=== PATIENT | female | born 1940 | race Caucasian/White ===

== ENCOUNTER 2019-06-12 14:50 | Inpatient (IN) ==
[2019-06-12 15:26] LABS: Basophils % 0.4 % (0.0-0.8); Eosinophils % 0.2 % (0.00-10.9); Hematocrit 35.5 VOL% (35.7-47.0); Hemoglobin 11.2 GM/DL (12.0-16.0); Immature Granulocytes % 0.4 %; Immature Granulocytes Absolute 0.02 #; Lymphocytes # 0.9 10*3/uL (1.4-4.0); Lymphocytes % 15.5 % (21.3-54.2); Mean Corpuscular HGB Conc 31.5 GM/DL (32-36); Mean Corpuscular Volume 85.1 FL (87-102); Mean Platelet Volume 8.8 FL (9.6-12.0); Monocytes % 5.6 % (1.7-12.7); Neutrophils % 77.9 % (38.7-73.9); Platelet Count 245 T/CUMM (130-400); Red Blood Count 4.17 MC/CUMM (3.8-5.5); White Blood Count 5.5 T/CUMM (4-12)
[2019-06-12 15:38] LABS: INR 0.9; Partial Thromboplastin Time 26.1 SECS (0-40)
[2019-06-12 15:46] LABS: Apearance,Urine CLEAR (Clear); Bilirubin,Urine Negative (Negative); Blood, Urine Negative (Negative); Glucose,Urine (UA) Negative (Negative); Hyaline Casts,Urine 1 /LPF (0-3); Ketones,Urine 20 mg/dL (Negative); Mucus,Urine Occasional /LPF (Occasional); Nitrite,Urine Negative (Negative); Protein,Urine Negative; RBC,Urine 2 /HPF (0-4); Squamous Epithelial Cell,Urine Occasional /HPF (0-10); Urine Color Yellow (Yellow); Urine Specific Gravity 1.012 (1.001-1.035); Urine Urobilinogen < 2.0 EU/DL (0.2-1.0); WBC,Urine 1 /HPF (0-6)
[2019-06-12 16:32] LABS: Alanine Aminotransferase 13 U/L (13-56); Albumin 3.9 G/DL (3.4-5.0); Alkaline Phosphatase 98 U/L (45-117); Aspartate Amino Transferase 18 U/L (0-37); Bilirubin,Total < 0.39 MG/DL (0.2-1.0); Blood Urea Nitrogen 7 MG/DL (7-18); Glucose 104 MG/DL (74-106); Total Protein 7.4 G/DL (6.4-8.3)
[2019-06-12] MEDS ORDERED: ONDANSETRON 4 MG/2 ML VIAL IV PRN (18:55)
[2019-06-12] MEDS: SIMVASTATIN 20 MG TABLET PO SCH (21:33)
[2019-06-12] MEDS: OLANZapine 5 MG TABLET PO SCH (21:33)
[2019-06-12] MEDS: DONEPEZIL 10 MG TABLET PO SCH (21:33)
[2019-06-13] MEDS ORDERED: MORPHINE 4 MG/1 ML VIAL IV ONE (02:17)
[2019-06-13 04:50] LABS: Basophils % 0.5 % (0.0-0.8); Eosinophils # 0.1 10*3/uL (0.0-0.87); Eosinophils % 1.8 % (0.00-10.9); Hematocrit 31.8 VOL% (35.7-47.0); Hemoglobin 10.1 GM/DL (12.0-16.0); Immature Granulocytes % 0.2 %; Immature Granulocytes Absolute 0.01 #; Lymphocytes # 2.5 10*3/uL (1.4-4.0); Lymphocytes % 38.5 % (21.3-54.2); Mean Corpuscular HGB Conc 31.8 GM/DL (32-36); Mean Corpuscular Volume 84.6 FL (87-102); Monocytes % 6.6 % (1.7-12.7); Neutrophils % 52.4 % (38.7-73.9); Platelet Count 209 T/CUMM (130-400); Red Blood Count 3.76 MC/CUMM (3.8-5.5); Red Cell Distribution Width 16.8 % (9.3-17.3); White Blood Count 6.5 T/CUMM (4-12)
[2019-06-13 05:39] LABS: Calcium 8.3 MG/DL (8.5-10.1); Osmolality,Calculated 263.2 MOS/KG (273-304); Risk Ratio 2.01; Thyroid Stimulating Hormone 4.9 uIU/ml (0.358-3.74); VLDL CHOLESTEROL 17.8 MG/DL
[2019-06-13] MEDS: LEVOTHYROXINE 75 MCG TABLET PO SCH (05:39)
[2019-06-13] MEDS: POTASSIUM CHLORIDE 20 MEQ TABLET PO SCH (08:48)
[2019-06-13] MEDS: PRIMIDONE 50 MG TABLET PO SCH (08:48)
[2019-06-13] MEDS: PANTOPRAZOLE 40 MG TABLET PO SCH (08:48)
[2019-06-13] MEDS: FUROSEMIDE 20 MG TABLET PO SCH (08:49)
[2019-06-13] MEDS: TAMOXIFEN 10 MG TABLET PO SCH (08:49)
[2019-06-13] MEDS: ACETAMINOPHEN 325 MG TABLET PO PRN (08:57)
[2019-06-13] MEDS: IPRATROPIUM 500 MCG/2.5 ML NEB RESP TX SCH ×4 (10:51→19:52)
[2019-06-13] MEDS: CLORAZEPATE 3.75 MG TABLET PO SCH ×3 (12:45→20:42)
[2019-06-13] MEDS ORDERED: cefTRIAXone 1,000 MG in SYRINGE 1 EACH IV SCH (13:00)
[2019-06-13] MEDS: VANCOMYCIN INJ 1,000 MG in SODIUM CHLORIDE 0.9% 250 ML IV SCH (16:56)
[2019-06-13] MEDS: DONEPEZIL 10 MG TABLET PO SCH (20:42)
[2019-06-13] MEDS: OLANZapine 5 MG TABLET PO SCH (20:42)
[2019-06-13] MEDS: SIMVASTATIN 20 MG TABLET PO SCH (20:42)
[2019-06-14] MEDS: ACETAMINOPHEN 325 MG TABLET PO PRN (00:56)
[2019-06-14 06:04] LABS: Basophils % 0.3 % (0.0-0.8); Eosinophils # 0.1 10*3/uL (0.0-0.87); Eosinophils % 2.3 % (0.00-10.9); Hematocrit 27.9 VOL% (35.7-47.0); Hemoglobin 9.1 GM/DL (12.0-16.0); Immature Granulocytes % 0.3 %; Immature Granulocytes Absolute 0.02 #; Lymphocytes # 2.3 10*3/uL (1.4-4.0); Lymphocytes % 37.6 % (21.3-54.2); Mean Corpuscular HGB Conc 32.6 GM/DL (32-36); Mean Corpuscular Volume 83.3 FL (87-102); Mean Platelet Volume 9.2 FL (9.6-12.0); Monocytes % 9.8 % (1.7-12.7); Neutrophils % 49.7 % (38.7-73.9); Platelet Count 197 T/CUMM (130-400); Red Blood Count 3.35 MC/CUMM (3.8-5.5); Red Cell Distribution Width 16.7 % (9.3-17.3)
[2019-06-14] MEDS: LEVOTHYROXINE 75 MCG TABLET PO SCH (06:17)
[2019-06-14 06:31] LABS: Calcium 7.9 MG/DL (8.5-10.1); Osmolality,Calculated 268.8 MOS/KG (273-304)
[2019-06-14] MEDS: IPRATROPIUM 500 MCG/2.5 ML NEB RESP TX SCH ×4 (08:50→19:17)
[2019-06-14] MEDS: POTASSIUM CHLORIDE 20 MEQ TABLET PO SCH (09:40)
[2019-06-14] MEDS: TAMOXIFEN 10 MG TABLET PO SCH (09:40)
[2019-06-14] MEDS: CLORAZEPATE 3.75 MG TABLET PO SCH ×4 (09:40→20:26)
[2019-06-14] MEDS: PRIMIDONE 50 MG TABLET PO SCH (09:40)
[2019-06-14] MEDS: VANCOMYCIN INJ 1,000 MG in SODIUM CHLORIDE 0.9% 250 ML IV SCH (09:40)
[2019-06-14] MEDS: FUROSEMIDE 20 MG TABLET PO SCH (09:40)
[2019-06-14] MEDS: PANTOPRAZOLE 40 MG TABLET PO SCH (09:40)
[2019-06-14] MEDS ORDERED: POTASSIUM CHLORIDE 20 MEQ TABLET PO ONE (11:00)
[2019-06-14] MEDS: DONEPEZIL 10 MG TABLET PO SCH (20:26)
[2019-06-14] MEDS: SIMVASTATIN 20 MG TABLET PO SCH (20:26)
[2019-06-14] MEDS: OLANZapine 5 MG TABLET PO SCH (20:26)
[2019-06-15] MEDS: MIRTAZAPINE 15 MG TABLET PO SCH (01:12)
[2019-06-15 03:45] LABS: Basophils % 0.5 % (0.0-0.8); Eosinophils # 0.2 10*3/uL (0.0-0.87); Eosinophils % 2.8 % (0.00-10.9); Hematocrit 28.8 VOL% (35.7-47.0); Hemoglobin 9.2 GM/DL (12.0-16.0); Immature Granulocytes % 0.3 %; Immature Granulocytes Absolute 0.02 #; Lymphocytes # 2.7 10*3/uL (1.4-4.0); Lymphocytes % 43.4 % (21.3-54.2); Mean Corpuscular HGB Conc 31.9 GM/DL (32-36); Mean Platelet Volume 8.9 FL (9.6-12.0); Monocytes % 9.7 % (1.7-12.7); Neutrophils % 43.3 % (38.7-73.9); Platelet Count 209 T/CUMM (130-400); Red Blood Count 3.43 MC/CUMM (3.8-5.5); Red Cell Distribution Width 17.1 % (9.3-17.3); White Blood Count 6.1 T/CUMM (4-12)
[2019-06-15 04:12] LABS: Calcium 7.8 MG/DL (8.5-10.1); Osmolality,Calculated 268.8 MOS/KG (273-304)
[2019-06-15] MEDS: VANCOMYCIN INJ 1,000 MG in SODIUM CHLORIDE 0.9% 250 ML IV SCH (04:21)
[2019-06-15] MEDS: LEVOTHYROXINE 75 MCG TABLET PO SCH (06:18)
[2019-06-15] MEDS: ACETAMINOPHEN 325 MG TABLET PO PRN (06:18)
[2019-06-15] MEDS: IPRATROPIUM 500 MCG/2.5 ML NEB RESP TX SCH ×4 (07:17→19:33)
[2019-06-15] MEDS: POTASSIUM CHLORIDE 20 MEQ TABLET PO SCH (09:26)
[2019-06-15] MEDS: PRIMIDONE 50 MG TABLET PO SCH (09:26)
[2019-06-15] MEDS: PANTOPRAZOLE 40 MG TABLET PO SCH (09:27)
[2019-06-15] MEDS: FUROSEMIDE 20 MG TABLET PO SCH (09:27)
[2019-06-15] MEDS: CLORAZEPATE 3.75 MG TABLET PO SCH ×4 (09:27→20:56)
[2019-06-15] MEDS: TAMOXIFEN 10 MG TABLET PO SCH (09:27)
[2019-06-15] MEDS: OLANZapine 5 MG TABLET PO SCH (20:56)
[2019-06-15] MEDS: SIMVASTATIN 20 MG TABLET PO SCH (20:56)
[2019-06-15] MEDS: DONEPEZIL 10 MG TABLET PO SCH (20:56)
[2019-06-16] MEDS: MIRTAZAPINE 15 MG TABLET PO SCH ×2 (00:05→20:37)
[2019-06-16 05:29] LABS: Basophils % 0.5 % (0.0-0.8); Eosinophils # 0.2 10*3/uL (0.0-0.87); Eosinophils % 2.8 % (0.00-10.9); Hematocrit 30.2 VOL% (35.7-47.0); Hemoglobin 9.7 GM/DL (12.0-16.0); Immature Granulocytes % 0.4 %; Immature Granulocytes Absolute 0.02 #; Lymphocytes % 35.7 % (21.3-54.2); Mean Corpuscular HGB Conc 32.1 GM/DL (32-36); Mean Corpuscular Volume 84.1 FL (87-102); Mean Platelet Volume 8.7 FL (9.6-12.0); Monocytes % 6.9 % (1.7-12.7); Neutrophils % 53.7 % (38.7-73.9); Platelet Count 202 T/CUMM (130-400); Red Blood Count 3.59 MC/CUMM (3.8-5.5); White Blood Count 5.6 T/CUMM (4-12)
[2019-06-16] MEDS: LEVOTHYROXINE 75 MCG TABLET PO SCH (05:50)
[2019-06-16 06:02] LABS: Calcium 8.4 MG/DL (8.5-10.1); Osmolality,Calculated 269.8 MOS/KG (273-304)
[2019-06-16] MEDS: IPRATROPIUM 500 MCG/2.5 ML NEB RESP TX SCH ×4 (07:06→19:51)
[2019-06-16] MEDS: PANTOPRAZOLE 40 MG TABLET PO SCH (09:09)
[2019-06-16] MEDS: FUROSEMIDE 20 MG TABLET PO SCH (09:09)
[2019-06-16] MEDS: TAMOXIFEN 10 MG TABLET PO SCH (09:09)
[2019-06-16] MEDS: CLORAZEPATE 3.75 MG TABLET PO SCH ×4 (09:09→20:37)
[2019-06-16] MEDS: POTASSIUM CHLORIDE 20 MEQ TABLET PO SCH (09:10)
[2019-06-16] MEDS: PRIMIDONE 50 MG TABLET PO SCH (09:10)
[2019-06-16] MEDS ORDERED: TUBERCULIN SKIN TEST 0.1 ML SYRINGE INTRADERM ONE (16:07)
[2019-06-16] MEDS: OLANZapine 5 MG TABLET PO SCH (20:37)
[2019-06-16] MEDS: DONEPEZIL 10 MG TABLET PO SCH (20:37)
[2019-06-16] MEDS: SIMVASTATIN 20 MG TABLET PO SCH (20:37)
[2019-06-17] MEDS: ACETAMINOPHEN 325 MG TABLET PO PRN ×3 (05:44→20:25)
[2019-06-17] MEDS: LEVOTHYROXINE 75 MCG TABLET PO SCH (05:45)
[2019-06-17] MEDS: IPRATROPIUM 500 MCG/2.5 ML NEB RESP TX SCH ×4 (07:22→19:50)
[2019-06-17] MEDS: PRIMIDONE 50 MG TABLET PO SCH (08:50)
[2019-06-17] MEDS: CLORAZEPATE 3.75 MG TABLET PO SCH ×4 (08:51→20:25)
[2019-06-17] MEDS: PANTOPRAZOLE 40 MG TABLET PO SCH (08:51)
[2019-06-17] MEDS: TAMOXIFEN 10 MG TABLET PO SCH (08:51)
[2019-06-17] MEDS: POTASSIUM CHLORIDE 20 MEQ TABLET PO SCH (08:51)
[2019-06-17] MEDS: FUROSEMIDE 20 MG TABLET PO SCH (08:51)
[2019-06-17] MEDS: DONEPEZIL 10 MG TABLET PO SCH (20:24)
[2019-06-17] MEDS: SIMVASTATIN 20 MG TABLET PO SCH (20:24)
[2019-06-17] MEDS: MIRTAZAPINE 15 MG TABLET PO SCH (20:25)
[2019-06-17] MEDS: OLANZapine 5 MG TABLET PO SCH (20:36)
[2019-06-18] MEDS: ACETAMINOPHEN 325 MG TABLET PO PRN (06:50)
[2019-06-18] MEDS: LEVOTHYROXINE 75 MCG TABLET PO SCH (06:51)
[2019-06-18] MEDS: IPRATROPIUM 500 MCG/2.5 ML NEB RESP TX SCH (07:34)
[2019-06-18 07:39] VITALS: BP 115/56
[2019-06-18] MEDS: FUROSEMIDE 20 MG TABLET PO SCH (08:41)
[2019-06-18] MEDS: PRIMIDONE 50 MG TABLET PO SCH (08:41)
[2019-06-18] MEDS: TAMOXIFEN 10 MG TABLET PO SCH (08:41)
[2019-06-18] MEDS: POTASSIUM CHLORIDE 20 MEQ TABLET PO SCH (08:41)
[2019-06-18] MEDS: PANTOPRAZOLE 40 MG TABLET PO SCH (08:42)
[2019-06-18] MEDS: CLORAZEPATE 3.75 MG TABLET PO SCH (08:42)
== END 2019-06-18 09:54 | disposition swing bed (61) | DRG 72 ==
LOC: EDBD → EDUNIT# → N.ED 14:50 → SUATTDRO 18:55 → N.EDINP 18:55 → N.2E 20:09
PROVIDERS: ADMIT Family Medicine; ATTEND Internal Medicine

== ENCOUNTER 2019-07-08 15:51 | Inpatient (IN) ==
[2019-07-08] MEDS ORDERED: ALBUTEROL/IPRATROPIUM 3 ML NEB RESP TX STA (16:26)
[2019-07-08] MEDS ORDERED: ACETAMINOPHEN 325 MG TABLET PO ONE (16:29)
[2019-07-08 17:57] LABS: Basophils % 0.2 % (0.0-0.8); Eosinophils # 0.1 10*3/uL (0.0-0.87); Eosinophils % 1.6 % (0.00-10.9); Hematocrit 27.5 VOL% (35.7-47.0); Hemoglobin 8.2 GM/DL (12.0-16.0); Immature Granulocytes % 0.5 %; Immature Granulocytes Absolute 0.03 #; Lymphocytes # 2.1 10*3/uL (1.4-4.0); Mean Corpuscular HGB Conc 29.8 GM/DL (32-36); Mean Corpuscular Volume 88.7 FL (87-102); Mean Platelet Volume 8.7 FL (9.6-12.0); Monocytes % 9.8 % (1.7-12.7); Neutrophils % 53.9 % (38.7-73.9); Platelet Count 268 T/CUMM (130-400); Red Cell Distribution Width 16.8 % (9.3-17.3); White Blood Count 6.2 T/CUMM (4-12)
[2019-07-08 18:15] LABS: Alanine Aminotransferase 11 U/L (13-56); Albumin 2.6 G/DL (3.4-5.0); Alkaline Phosphatase 82 U/L (45-117); Aspartate Amino Transferase 11 U/L (0-37); Bilirubin,Total < 0.39 MG/DL (0.2-1.0); Blood Urea Nitrogen 9 MG/DL (7-18); Calcium 8.1 MG/DL (8.5-10.1); Glucose 88 MG/DL (74-106); Osmolality,Calculated 278.3 MOS/KG (273-304); Total Protein 5.9 G/DL (6.4-8.3)
[2019-07-08 18:16] LABS: INR 0.9; PT Patient Result 9.5 SECS; Partial Thromboplastin Time 26.9 SECS (0-40)
[2019-07-08 18:18] LABS: Troponin I < 0.015 NG/ML (0.00-0.045)
[2019-07-08] MEDS ORDERED: methylPREDNISolone SOD SUC 125 MG/2 ML VIAL IV STA (18:50)
[2019-07-08] MEDS ORDERED: diphenhydrAMINE 50 MG/1 ML VIAL IV STA (19:04)
[2019-07-08] MEDS ORDERED: ONDANSETRON 4 MG/2 ML VIAL IV PRN (20:13)
[2019-07-08] MEDS ORDERED: PANTOPRAZOLE 40 MG VIAL IV ONE (20:22)
[2019-07-08] MEDS ORDERED: SODIUM CHLORIDE 0.45% 1,000 ML IV SCH (20:30)
[2019-07-08] MEDS ORDERED: LORazepam 2 MG/1 ML VIAL IV STA (20:37)
[2019-07-08] MEDS ORDERED: LORazepam 2 MG/1 ML VIAL ONE (20:42)
[2019-07-08] MEDS ORDERED: DEXTROSE 5% NACL 0.45% 1,000 ML IV SCH (21:00)
[2019-07-08 22:41] LABS: Hematocrit 29.2 VOL% (35.7-47.0)
[2019-07-08] MEDS ORDERED: PANTOPRAZOLE INJ 200 MG in SODIUM CHLORIDE 0.9% 250 ML IV SCH (23:00)
[2019-07-08] MEDS ORDERED: ZALEPLON 5 MG CAPSULE PO PRN (23:17)
[2019-07-08] MEDS: guaiFENesin/DM ER 600-30 MG TABLET PO SCH (23:42)
[2019-07-08] MEDS: BENZONATATE 100 MG CAPSULE PO SCH (23:42)
[2019-07-08] MEDS: ACETAMINOPHEN 325 MG TABLET PO PRN (23:42)
[2019-07-09] MEDS: ALBUTEROL/IPRATROPIUM 3 ML NEB RESP TX SCH ×4 (00:33→19:35)
[2019-07-09] MEDS: PIPERACILLIN/TAZOBACTAM 3,375 MG in SODIUM CHLORIDE 0.9% 100 ML IV SCH ×3 (00:33→16:58)
[2019-07-09 03:11] LABS: Basophils % 0.3 % (0.0-0.8); Hematocrit 28.1 VOL% (35.7-47.0); Hemoglobin 8.6 GM/DL (12.0-16.0); Immature Granulocytes % 0.5 %; Immature Granulocytes Absolute 0.03 #; Lymphocytes # 1.7 10*3/uL (1.4-4.0); Lymphocytes % 28.3 % (21.3-54.2); Mean Corpuscular HGB Conc 30.6 GM/DL (32-36); Mean Corpuscular Volume 88.1 FL (87-102); Mean Platelet Volume 8.7 FL (9.6-12.0); Monocytes % 6.4 % (1.7-12.7); Neutrophils % 64.5 % (38.7-73.9); Platelet Count 264 T/CUMM (130-400); Red Blood Count 3.19 MC/CUMM (3.8-5.5); Red Cell Distribution Width 16.9 % (9.3-17.3); White Blood Count 6.1 T/CUMM (4-12)
[2019-07-09 03:22] LABS: Calcium 8.4 MG/DL (8.5-10.1); Osmolality,Calculated 279.3 MOS/KG (273-304)
[2019-07-09] MEDS ORDERED: methylPREDNISolone SOD SUC 40 MG/1 ML VIAL IV SCH (09:00)
[2019-07-09 09:08] LABS: Hematocrit 29.2 VOL% (35.7-47.0); Hemoglobin 8.8 GM/DL (12.0-16.0)
[2019-07-09] MEDS: FUROSEMIDE 20 MG/2 ML VIAL IV SCH ×2 (09:41→17:04)
[2019-07-09] MEDS: guaiFENesin/DM ER 600-30 MG TABLET PO SCH ×2 (10:57→21:38)
[2019-07-09] MEDS: BENZONATATE 100 MG CAPSULE PO SCH ×3 (10:58→21:38)
[2019-07-09] MEDS: CLORAZEPATE 3.75 MG TABLET PO SCH ×3 (13:45→21:38)
[2019-07-09] MEDS ORDERED: LEVOFLOXACIN INJ 500 MG in PREMIX 1 EACH IV SCH (15:00)
[2019-07-09 15:10] LABS: Hematocrit 29.1 VOL% (35.7-47.0); Hemoglobin 9.1 GM/DL (12.0-16.0)
[2019-07-09] MEDS: GABAPENTIN 300 MG CAPSULE PO SCH ×2 (15:45→21:38)
[2019-07-09] MEDS: ACETAMINOPHEN 325 MG TABLET PO PRN (16:58)
[2019-07-09] MEDS: ARFORMOTEROL 15 MCG/2 ML NEB RESP TX SCH (19:35)
[2019-07-09] MEDS ORDERED: MIRTAZAPINE 15 MG TABLET PO SCH (21:00)
[2019-07-09] MEDS ORDERED: OLANZapine 5 MG TABLET PO SCH (21:00)
[2019-07-09] MEDS ORDERED: ESCITALOPRAM 10 MG TABLET PO SCH (21:00)
[2019-07-09] MEDS ORDERED: SIMVASTATIN 20 MG TABLET PO SCH (21:00)
[2019-07-09] MEDS ORDERED: DONEPEZIL 10 MG TABLET PO SCH (21:00)
[2019-07-09] MEDS: PHENYTOIN ER 100 MG CAPSULE PO SCH (21:38)
[2019-07-09] MEDS: PANTOPRAZOLE 40 MG TABLET PO SCH (21:38)
[2019-07-09] MEDS: methylPREDNISolone SOD SUC 40 MG/1 ML VIAL IV SCH (21:45)
[2019-07-10] MEDS: ALBUTEROL/IPRATROPIUM 3 ML NEB RESP TX SCH ×2 (01:25→07:36)
[2019-07-10] MEDS: PIPERACILLIN/TAZOBACTAM 3,375 MG in SODIUM CHLORIDE 0.9% 100 ML IV SCH ×2 (01:29→10:07)
[2019-07-10] MEDS ORDERED: LEVOTHYROXINE 75 MCG TABLET PO SCH (06:30)
[2019-07-10 06:33] LABS: % Iron Saturation 6.6 % (18-50); Ferritin 14.2 ng/ml (8-252)
[2019-07-10 06:39] LABS: Alanine Aminotransferase 9 U/L (13-56); Albumin 2.4 G/DL (3.4-5.0); Alkaline Phosphatase 75 U/L (45-117); Aspartate Amino Transferase 16 U/L (0-37); Bilirubin,Total < 0.39 MG/DL (0.2-1.0); Blood Urea Nitrogen 9 MG/DL (7-18); Calcium 8.4 MG/DL (8.5-10.1); Folate 13.2 NG/ML (5.4-24.0); Glucose 90 MG/DL (74-106); Osmolality,Calculated 284.8 MOS/KG (273-304); Total Protein 6.3 G/DL (6.4-8.3)
[2019-07-10 07:17] VITALS: BP 122/52
[2019-07-10] MEDS ORDERED: PHENYLEPHRINE 1 MG/10 ML SYRINGE IV ONE (07:33)
[2019-07-10] MEDS ORDERED: MORPHINE 10 MG/10 ML VIAL ONE (07:33)
[2019-07-10] MEDS ORDERED: BUPIVACAINE SPINAL 0.75% 2 ML AMP SPINAL ONE (07:33)
[2019-07-10] MEDS ORDERED: BUPIVACAINE 0.25% 50 ML VIAL ONE (07:33)
[2019-07-10] MEDS: ARFORMOTEROL 15 MCG/2 ML NEB RESP TX SCH (07:36)
[2019-07-10 07:52] LABS: Basophils % 0.5 % (0.0-0.8); Eosinophils # 0.1 10*3/uL (0.0-0.87); Eosinophils % 1.1 % (0.00-10.9); Hematocrit 27.7 VOL% (35.7-47.0); Hemoglobin 8.4 GM/DL (12.0-16.0); Immature Granulocytes % 0.5 %; Immature Granulocytes Absolute 0.03 #; Lymphocytes # 2.3 10*3/uL (1.4-4.0); Lymphocytes % 42.7 % (21.3-54.2); Mean Corpuscular HGB Conc 30.3 GM/DL (32-36); Mean Corpuscular Volume 88.5 FL (87-102); Mean Platelet Volume 8.8 FL (9.6-12.0); Monocytes % 9.2 % (1.7-12.7); Platelet Count 270 T/CUMM (130-400); Red Blood Count 3.13 MC/CUMM (3.8-5.5); Red Cell Distribution Width 17.4 % (9.3-17.3); White Blood Count 5.5 T/CUMM (4-12)
[2019-07-10] MEDS ORDERED: NON-FORMULARY MEDICATION (Omeprazole 20 MG) PO SCH (09:00)
[2019-07-10] MEDS ORDERED: PRIMIDONE 50 MG TABLET PO SCH (09:00)
[2019-07-10] MEDS ORDERED: NON-FORMULARY MEDICATION (Tiotropium Bromide [Spiriva With Handihaler] 18 MCG) INH SCH (09:00)
[2019-07-10] MEDS ORDERED: MENTHOL ZINC OXIDE TOP SCH (09:00)
[2019-07-10] MEDS ORDERED: TAMOXIFEN 10 MG TABLET PO SCH (09:00)
[2019-07-10] MEDS: PHENYTOIN ER 100 MG CAPSULE PO SCH (09:50)
[2019-07-10] MEDS: BENZONATATE 100 MG CAPSULE PO SCH (09:51)
[2019-07-10] MEDS: PANTOPRAZOLE 40 MG TABLET PO SCH (09:52)
[2019-07-10] MEDS: GABAPENTIN 300 MG CAPSULE PO SCH (09:52)
[2019-07-10] MEDS: guaiFENesin/DM ER 600-30 MG TABLET PO SCH (09:52)
[2019-07-10] MEDS: CLORAZEPATE 3.75 MG TABLET PO SCH (09:54)
[2019-07-10] MEDS: FUROSEMIDE 20 MG/2 ML VIAL IV SCH (10:06)
[2019-07-10] MEDS: methylPREDNISolone SOD SUC 40 MG/1 ML VIAL IV SCH (10:06)
[2019-07-10] MEDS ORDERED: LEVOFLOXACIN 500 MG TABLET PO SCH (10:30)
== END 2019-07-10 10:35 | DRG 190 ==
LOC: EDUNIT# → N.ED 15:51 → N.EDINP 20:13 → N.2E 22:25
PROVIDERS: ADMIT Family Medicine; ATTEND Family Medicine

== ENCOUNTER 2020-07-21 11:08 | Inpatient (IN) ==
[2020-07-21] MEDS ORDERED: ONDANSETRON 4 MG/2 ML VIAL IV STA (11:36)
[2020-07-21] MEDS ORDERED: SODIUM CHLORIDE 0.9% 1,000 ML IV STA (11:36)
[2020-07-21] MEDS ORDERED: DEXAMETHASONE 4 MG/1 ML VIAL IV STA (11:41)
[2020-07-21] MEDS ORDERED: ALBUTEROL 2.5 MG/3 ML NEB RESP TX STA (12:43)
[2020-07-21 13:02] LABS: Eosinophils % 0.2 % (0.00-10.9); Hematocrit 29.6 VOL% (35.7-47.0); Hemoglobin 8.9 GM/DL (12.0-16.0); Immature Granulocytes % 0.7 %; Immature Granulocytes Absolute 0.03 #; Lymphocytes # 1.8 10*3/uL (1.4-4.0); Lymphocytes % 41.7 % (21.3-54.2); Mean Corpuscular HGB Conc 30.1 GM/DL (32-36); Mean Corpuscular Volume 81.5 FL (87-102); Mean Platelet Volume 8.6 FL (9.6-12.0); Monocytes % 8.5 % (1.7-12.7); Neutrophils % 48.9 % (38.7-73.9); Platelet Count 177 T/CUMM (130-400); Red Blood Count 3.63 MC/CUMM (3.8-5.5); Red Cell Distribution Width 18.2 % (9.3-17.3); White Blood Count 4.3 T/CUMM (4-12)
[2020-07-21 13:06] LABS: Alanine Aminotransferase 9 U/L (13-56); Albumin 2.1 G/DL (3.4-5.0); Alkaline Phosphatase 97 U/L (45-117); Aspartate Amino Transferase 30 U/L (0-37); Bilirubin,Total < 0.39 MG/DL (0.2-1.0); Blood Urea Nitrogen 7 MG/DL (7-18); Calcium 7.3 MG/DL (8.5-10.1); Estimated Glom Filtration Rate 84 ML/MIN; Glucose 78 MG/DL (74-106); Osmolality,Calculated 264.2 MOS/KG (273-304); Total Protein 6.1 G/DL (6.4-8.3)
[2020-07-21] MEDS: ALBUTEROL INHALER 18 GM INH SCH ×2 (14:30→19:02)
[2020-07-21] MEDS ORDERED: DEXTROSE 50% 25 GM/50 ML VIAL IV PRN (15:58)
[2020-07-21] MEDS ORDERED: GLUCAGON 1 MG VIAL IM PRN (15:58)
[2020-07-21] MEDS ORDERED: LEVOFLOXACIN INJ 500 MG in PREMIX 1 EACH IV SCH (16:30)
[2020-07-21 17:16] LABS: Band Neutrophils 6 % (0-10); Lymphocytes 33 % (20-55); Segmented Neutrophils 55 % (50-85); Total Cells Counted 100
[2020-07-21 17:17] LABS: Microcytosis Slight; Platelet Estimate Adequate; Polychromasia Slight
[2020-07-21] MEDS ORDERED: ENOXAPARIN 60 MG/0.6 ML SYRINGE SUBCUT SCH (21:00)
[2020-07-21] MEDS ORDERED: PULMICORT FLEXHALER INH SCH (21:00)
[2020-07-21] MEDS: MELATONIN 3 MG TABLET PO SCH (21:36)
[2020-07-21] MEDS: ACETAMINOPHEN 325 MG TABLET PO PRN (21:36)
[2020-07-21] MEDS: DONEPEZIL 10 MG TABLET PO SCH (21:36)
[2020-07-21] MEDS: BENZONATATE 100 MG CAPSULE PO SCH (21:37)
[2020-07-21] MEDS: OLANZapine 5 MG TABLET PO SCH (21:37)
[2020-07-21] MEDS: MIRTAZAPINE 30 MG TABLET PO SCH (21:37)
[2020-07-21] MEDS: ESCITALOPRAM 10 MG TABLET PO SCH (21:37)
[2020-07-21] MEDS: NEOMYCIN/POLYMYXIN/BACITRACIN OINT 0.9 GM PACK TOP SCH (21:38)
[2020-07-21] MEDS: MENTHOL/ZINC OXIDE OINT 71 GM JAR TOP SCH (21:40)
[2020-07-22] MEDS: PHENYTOIN ER 100 MG CAPSULE PO SCH ×3 (00:06→20:51)
[2020-07-22] MEDS: ALBUTEROL INHALER 18 GM INH SCH ×4 (00:17→18:06)
[2020-07-22 05:24] LABS: Eosinophils % 0.9 % (0.00-10.9); Hematocrit 30.6 VOL% (35.7-47.0); Hemoglobin 8.9 GM/DL (12.0-16.0); Immature Granulocytes % 0.6 %; Immature Granulocytes Absolute 0.02 #; Lymphocytes # 1.3 10*3/uL (1.4-4.0); Lymphocytes % 41.2 % (21.3-54.2); Mean Corpuscular HGB Conc 29.1 GM/DL (32-36); Mean Corpuscular Volume 83.8 FL (87-102); Mean Platelet Volume 10.7 FL (9.6-12.0); Monocytes % 9.5 % (1.7-12.7); Neutrophils % 47.8 % (38.7-73.9); Platelet Count 153 T/CUMM (130-400); Red Blood Count 3.65 MC/CUMM (3.8-5.5); Red Cell Distribution Width 18.5 % (9.3-17.3); White Blood Count 3.3 T/CUMM (4-12)
[2020-07-22 06:16] LABS: Eosinophils 2 % (0-10); Hypochromasia 1+; Lymphocytes 32 % (20-55); Microcytosis 1+; Segmented Neutrophils 54 % (50-85); Total Cells Counted 100
[2020-07-22 06:18] LABS: Atypical Lymphocytes Few; Platelet Estimate Adequate
[2020-07-22 06:27] LABS: Calcium 7.7 MG/DL (8.5-10.1); Osmolality,Calculated 269.8 MOS/KG (273-304)
[2020-07-22] MEDS ORDERED: SPIRIVA INH SCH (09:00)
[2020-07-22] MEDS: POTASSIUM CHLORIDE 20 MEQ/15 ML UDCUP PO SCH (09:04)
[2020-07-22] MEDS: ENOXAPARIN 40 MG/0.4 ML SYRINGE SUBCUT SCH ×2 (09:04→20:51)
[2020-07-22] MEDS: PRIMIDONE 50 MG TABLET PO SCH (09:04)
[2020-07-22] MEDS: ASCORBIC ACID 500 MG TABLET PO SCH (09:05)
[2020-07-22] MEDS: CETIRIZINE 10 MG TABLET PO SCH (09:05)
[2020-07-22] MEDS: FERROUS SULFATE 325 MG TABLET PO SCH (09:05)
[2020-07-22] MEDS: BENZONATATE 100 MG CAPSULE PO SCH ×3 (09:05→20:50)
[2020-07-22] MEDS: DEXAMETHASONE 4 MG/1 ML VIAL IV SCH (09:05)
[2020-07-22] MEDS: LACTOBACILLUS ACIDOPHILUS/BULGARICUS CAPLET PO SCH (09:05)
[2020-07-22] MEDS: ZINC SULFATE 220 MG CAPSULE PO SCH (09:06)
[2020-07-22] MEDS: LEVOFLOXACIN 750 MG TABLET PO SCH (09:06)
[2020-07-22] MEDS: MENTHOL/ZINC OXIDE OINT 71 GM JAR TOP SCH ×3 (09:06→21:00)
[2020-07-22] MEDS: FUROSEMIDE 20 MG TABLET PO SCH (09:06)
[2020-07-22] MEDS: DESITIN 4OZ/NYSTATIN 15 GRAM MIXTURE PASTE TOP SCH ×2 (14:56→21:00)
[2020-07-22] MEDS ORDERED: GABAPENTIN 300 MG CAPSULE PO ONE (17:46)
[2020-07-22] MEDS: ACETAMINOPHEN 325 MG TABLET PO PRN (18:06)
[2020-07-22] MEDS: GABAPENTIN 300 MG CAPSULE PO SCH (20:50)
[2020-07-22] MEDS: ESCITALOPRAM 10 MG TABLET PO SCH (20:50)
[2020-07-22] MEDS: DONEPEZIL 10 MG TABLET PO SCH (20:51)
[2020-07-22] MEDS: OLANZapine 5 MG TABLET PO SCH (20:51)
[2020-07-22] MEDS: NEOMYCIN/POLYMYXIN/BACITRACIN OINT 0.9 GM PACK TOP SCH (20:51)
[2020-07-22] MEDS: MIRTAZAPINE 30 MG TABLET PO SCH (20:51)
[2020-07-22] MEDS: MELATONIN 3 MG TABLET PO SCH (20:51)
[2020-07-23] MEDS: ALBUTEROL INHALER 18 GM INH SCH ×4 (00:10→18:21)
[2020-07-23 06:17] LABS: Basophils % 0.3 % (0.0-0.8); Eosinophils % 0.8 % (0.00-10.9); Hematocrit 28.7 VOL% (35.7-47.0); Hemoglobin 8.6 GM/DL (12.0-16.0); Immature Granulocytes % 0.5 %; Immature Granulocytes Absolute 0.02 #; Lymphocytes # 1.7 10*3/uL (1.4-4.0); Lymphocytes % 42.3 % (21.3-54.2); Mean Corpuscular Volume 81.8 FL (87-102); Mean Platelet Volume 8.9 FL (9.6-12.0); Monocytes % 7.7 % (1.7-12.7); Neutrophils % 48.4 % (38.7-73.9); Platelet Count 187 T/CUMM (130-400); Red Blood Count 3.51 MC/CUMM (3.8-5.5); Red Cell Distribution Width 18.8 % (9.3-17.3); White Blood Count 3.9 T/CUMM (4-12)
[2020-07-23] MEDS: LEVOTHYROXINE 75 MCG TABLET PO SCH (06:20)
[2020-07-23 06:43] LABS: Calcium 7.9 MG/DL (8.5-10.1); Osmolality,Calculated 269.8 MOS/KG (273-304)
[2020-07-23 07:10] LABS: Anisocytosis 2+; Band Neutrophils 3 % (0-10); Lymphocytes 41 % (20-55); Macrocytosis 2+; Platelet Estimate Normal; Polychromasia 1+; Segmented Neutrophils 47 % (50-85); Total Cells Counted 100
[2020-07-23] MEDS: MENTHOL/ZINC OXIDE OINT 71 GM JAR TOP SCH ×3 (09:10→20:44)
[2020-07-23] MEDS: hydrOXYzine HCL 25 MG TABLET PO SCH (09:10)
[2020-07-23] MEDS: LACTOBACILLUS ACIDOPHILUS/BULGARICUS CAPLET PO SCH (09:10)
[2020-07-23] MEDS: DEXAMETHASONE 4 MG/1 ML VIAL IV SCH (09:10)
[2020-07-23] MEDS: PHENYTOIN ER 100 MG CAPSULE PO SCH ×2 (09:10→20:43)
[2020-07-23] MEDS: ENOXAPARIN 40 MG/0.4 ML SYRINGE SUBCUT SCH ×2 (09:11→20:44)
[2020-07-23] MEDS: FERROUS SULFATE 325 MG TABLET PO SCH (09:11)
[2020-07-23] MEDS: PRIMIDONE 50 MG TABLET PO SCH (09:11)
[2020-07-23] MEDS: ZINC SULFATE 220 MG CAPSULE PO SCH (09:11)
[2020-07-23] MEDS: LEVOFLOXACIN 750 MG TABLET PO SCH (09:11)
[2020-07-23] MEDS: GABAPENTIN 300 MG CAPSULE PO SCH ×2 (09:11→20:44)
[2020-07-23] MEDS: DESITIN 4OZ/NYSTATIN 15 GRAM MIXTURE PASTE TOP SCH ×2 (09:11→20:56)
[2020-07-23] MEDS: MELOXICAM 7.5 MG TABLET PO SCH (09:11)
[2020-07-23] MEDS: FUROSEMIDE 20 MG TABLET PO SCH (09:11)
[2020-07-23] MEDS: ASCORBIC ACID 500 MG TABLET PO SCH (09:11)
[2020-07-23] MEDS: POTASSIUM CHLORIDE 20 MEQ/15 ML UDCUP PO SCH (09:11)
[2020-07-23] MEDS: TAMOXIFEN 10 MG TABLET PO SCH (09:11)
[2020-07-23] MEDS: CETIRIZINE 10 MG TABLET PO SCH (09:11)
[2020-07-23] MEDS: BENZONATATE 100 MG CAPSULE PO SCH ×3 (09:11→20:43)
[2020-07-23] MEDS ORDERED: REMDESIVIR 200 MG in SODIUM CHLORIDE 0.9% 210 ML IV ONE (17:00)
[2020-07-23] MEDS: ACETAMINOPHEN 325 MG TABLET PO PRN (18:00)
[2020-07-23] MEDS: ONDANSETRON 4 MG/2 ML VIAL IV PRN (19:00)
[2020-07-23] MEDS: MELATONIN 3 MG TABLET PO SCH (20:42)
[2020-07-23] MEDS: OLANZapine 5 MG TABLET PO SCH (20:42)
[2020-07-23] MEDS: DONEPEZIL 10 MG TABLET PO SCH (20:42)
[2020-07-23] MEDS: ESCITALOPRAM 10 MG TABLET PO SCH (20:43)
[2020-07-23] MEDS: MIRTAZAPINE 30 MG TABLET PO SCH (20:43)
[2020-07-23] MEDS: NEOMYCIN/POLYMYXIN/BACITRACIN OINT 0.9 GM PACK TOP SCH (20:44)
[2020-07-24] MEDS: ALBUTEROL INHALER 18 GM INH SCH ×4 (00:36→18:48)
[2020-07-24 06:03] LABS: Eosinophils # 0.1 10*3/uL (0.0-0.87); Eosinophils % 1.5 % (0.00-10.9); Hematocrit 27.6 VOL% (35.7-47.0); Hemoglobin 8.2 GM/DL (12.0-16.0); Immature Granulocytes % 0.6 %; Immature Granulocytes Absolute 0.02 #; Lymphocytes # 1.1 10*3/uL (1.4-4.0); Lymphocytes % 34.7 % (21.3-54.2); Mean Corpuscular HGB Conc 29.7 GM/DL (32-36); Mean Corpuscular Volume 83.1 FL (87-102); Mean Platelet Volume 9.2 FL (9.6-12.0); Monocytes % 8.5 % (1.7-12.7); Neutrophils % 54.7 % (38.7-73.9); Platelet Count 207 T/CUMM (130-400); Red Blood Count 3.32 MC/CUMM (3.8-5.5); Red Cell Distribution Width 18.9 % (9.3-17.3); White Blood Count 3.3 T/CUMM (4-12)
[2020-07-24] MEDS: LEVOTHYROXINE 75 MCG TABLET PO SCH (06:22)
[2020-07-24 06:29] LABS: Calcium 7.9 MG/DL (8.5-10.1); Osmolality,Calculated 271.7 MOS/KG (273-304)
[2020-07-24 06:34] LABS: Anisocytosis 1+; Platelet Estimate Normal; Polychromasia Slight; Spherocytes Slight
[2020-07-24 06:35] LABS: Hypochromasia 1+; Ovalocytes Slight
[2020-07-24] MEDS: LACTOBACILLUS ACIDOPHILUS/BULGARICUS CAPLET PO SCH (09:27)
[2020-07-24] MEDS: MELOXICAM 7.5 MG TABLET PO SCH (09:27)
[2020-07-24] MEDS: DEXAMETHASONE 4 MG/1 ML VIAL IV SCH (09:27)
[2020-07-24] MEDS: POTASSIUM CHLORIDE 20 MEQ/15 ML UDCUP PO SCH (09:27)
[2020-07-24] MEDS: ENOXAPARIN 40 MG/0.4 ML SYRINGE SUBCUT SCH ×2 (09:27→21:41)
[2020-07-24] MEDS: hydrOXYzine HCL 25 MG TABLET PO SCH (09:28)
[2020-07-24] MEDS: CETIRIZINE 10 MG TABLET PO SCH (09:28)
[2020-07-24] MEDS: GABAPENTIN 300 MG CAPSULE PO SCH ×2 (09:28→21:42)
[2020-07-24] MEDS: PHENYTOIN ER 100 MG CAPSULE PO SCH ×2 (09:29→21:42)
[2020-07-24] MEDS: FERROUS SULFATE 325 MG TABLET PO SCH (09:30)
[2020-07-24] MEDS: ASCORBIC ACID 500 MG TABLET PO SCH (09:30)
[2020-07-24] MEDS: TAMOXIFEN 10 MG TABLET PO SCH (09:30)
[2020-07-24] MEDS: BENZONATATE 100 MG CAPSULE PO SCH ×3 (09:31→21:41)
[2020-07-24] MEDS: FUROSEMIDE 20 MG TABLET PO SCH (09:31)
[2020-07-24] MEDS: LEVOFLOXACIN 750 MG TABLET PO SCH (09:31)
[2020-07-24] MEDS: ZINC SULFATE 220 MG CAPSULE PO SCH (09:31)
[2020-07-24] MEDS: MENTHOL/ZINC OXIDE OINT 71 GM JAR TOP SCH ×3 (09:31→21:43)
[2020-07-24] MEDS: PRIMIDONE 50 MG TABLET PO SCH (09:32)
[2020-07-24] MEDS: DESITIN 4OZ/NYSTATIN 15 GRAM MIXTURE PASTE TOP SCH ×2 (09:33→21:44)
[2020-07-24] MEDS: ONDANSETRON 4 MG/2 ML VIAL IV PRN ×3 (10:22→22:35)
[2020-07-24] MEDS: REMDESIVIR 100 MG in SODIUM CHLORIDE 0.9% 230 ML IV SCH (17:18)
[2020-07-24] MEDS: ESCITALOPRAM 10 MG TABLET PO SCH (21:41)
[2020-07-24] MEDS: DONEPEZIL 10 MG TABLET PO SCH (21:42)
[2020-07-24] MEDS: OLANZapine 5 MG TABLET PO SCH (21:42)
[2020-07-24] MEDS: MELATONIN 3 MG TABLET PO SCH (21:42)
[2020-07-24] MEDS: MIRTAZAPINE 30 MG TABLET PO SCH (21:42)
[2020-07-24] MEDS: NEOMYCIN/POLYMYXIN/BACITRACIN OINT 0.9 GM PACK TOP SCH (21:44)
[2020-07-25] MEDS: ALBUTEROL INHALER 18 GM INH SCH ×4 (00:30→18:34)
[2020-07-25] MEDS: LEVOTHYROXINE 75 MCG TABLET PO SCH (06:22)
[2020-07-25] MEDS: FERROUS SULFATE 325 MG TABLET PO SCH (08:03)
[2020-07-25] MEDS: hydrOXYzine HCL 25 MG TABLET PO SCH (08:03)
[2020-07-25] MEDS: MELOXICAM 7.5 MG TABLET PO SCH (08:04)
[2020-07-25] MEDS: CETIRIZINE 10 MG TABLET PO SCH (08:04)
[2020-07-25] MEDS: FUROSEMIDE 20 MG TABLET PO SCH (08:04)
[2020-07-25] MEDS: ZINC SULFATE 220 MG CAPSULE PO SCH (08:04)
[2020-07-25] MEDS: PHENYTOIN ER 100 MG CAPSULE PO SCH ×2 (08:04→20:01)
[2020-07-25] MEDS: ASCORBIC ACID 500 MG TABLET PO SCH (08:05)
[2020-07-25] MEDS: BENZONATATE 100 MG CAPSULE PO SCH ×3 (08:05→20:00)
[2020-07-25] MEDS: LEVOFLOXACIN 750 MG TABLET PO SCH (08:05)
[2020-07-25] MEDS: GABAPENTIN 300 MG CAPSULE PO SCH ×2 (08:05→20:01)
[2020-07-25] MEDS: LACTOBACILLUS ACIDOPHILUS/BULGARICUS CAPLET PO SCH (08:06)
[2020-07-25] MEDS: DEXAMETHASONE 4 MG/1 ML VIAL IV SCH (08:06)
[2020-07-25] MEDS: TAMOXIFEN 10 MG TABLET PO SCH (08:06)
[2020-07-25] MEDS: ENOXAPARIN 40 MG/0.4 ML SYRINGE SUBCUT SCH ×2 (08:07→20:00)
[2020-07-25] MEDS: POTASSIUM CHLORIDE 20 MEQ/15 ML UDCUP PO SCH (08:07)
[2020-07-25] MEDS: MENTHOL/ZINC OXIDE OINT 71 GM JAR TOP SCH ×3 (08:13→20:02)
[2020-07-25] MEDS: DESITIN 4OZ/NYSTATIN 15 GRAM MIXTURE PASTE TOP SCH ×2 (08:14→20:02)
[2020-07-25] MEDS: PRIMIDONE 50 MG TABLET PO SCH (08:19)
[2020-07-25] MEDS: ONDANSETRON 4 MG/2 ML VIAL IV PRN ×2 (08:19→18:56)
[2020-07-25] MEDS: REMDESIVIR 100 MG in SODIUM CHLORIDE 0.9% 230 ML IV SCH (17:47)
[2020-07-25] MEDS: ESCITALOPRAM 10 MG TABLET PO SCH (20:00)
[2020-07-25] MEDS: DONEPEZIL 10 MG TABLET PO SCH (20:01)
[2020-07-25] MEDS: MELATONIN 3 MG TABLET PO SCH (20:01)
[2020-07-25] MEDS: OLANZapine 5 MG TABLET PO SCH (20:01)
[2020-07-25] MEDS: MIRTAZAPINE 30 MG TABLET PO SCH (20:01)
[2020-07-25] MEDS: NEOMYCIN/POLYMYXIN/BACITRACIN OINT 0.9 GM PACK TOP SCH (20:02)
[2020-07-25] MEDS: ACETAMINOPHEN 325 MG TABLET PO PRN (23:42)
[2020-07-26] MEDS: ALBUTEROL INHALER 18 GM INH SCH ×4 (00:25→18:03)
[2020-07-26 04:27] LABS: Basophils % 0.3 % (0.0-0.8); Eosinophils # 0.1 10*3/uL (0.0-0.87); Eosinophils % 2.4 % (0.00-10.9); Immature Granulocytes % 0.6 %; Immature Granulocytes Absolute 0.02 #; Lymphocytes # 1.6 10*3/uL (1.4-4.0); Lymphocytes % 46.6 % (21.3-54.2); Mean Corpuscular HGB Conc 29.6 GM/DL (32-36); Mean Corpuscular Volume 83.3 FL (87-102); Mean Platelet Volume 9.1 FL (9.6-12.0); Monocytes % 8.7 % (1.7-12.7); Neutrophils % 41.4 % (38.7-73.9); Platelet Count 224 T/CUMM (130-400); Red Blood Count 3.24 MC/CUMM (3.8-5.5); Red Cell Distribution Width 19.6 % (9.3-17.3); White Blood Count 3.4 T/CUMM (4-12)
[2020-07-26 04:42] LABS: Calcium 7.9 MG/DL (8.5-10.1); Osmolality,Calculated 270.7 MOS/KG (273-304)
[2020-07-26 05:00] LABS: Hypochromasia 1+
[2020-07-26 05:01] LABS: Anisocytosis 1+; Microcytosis 1+; Ovalocytes Slight; Platelet Estimate Normal
[2020-07-26] MEDS: LEVOTHYROXINE 75 MCG TABLET PO SCH (06:02)
[2020-07-26] MEDS: POTASSIUM CHLORIDE 20 MEQ/15 ML UDCUP PO SCH (08:24)
[2020-07-26] MEDS: ENOXAPARIN 40 MG/0.4 ML SYRINGE SUBCUT SCH ×2 (08:24→21:58)
[2020-07-26] MEDS: DEXAMETHASONE 4 MG/1 ML VIAL IV SCH (08:25)
[2020-07-26] MEDS: LACTOBACILLUS ACIDOPHILUS/BULGARICUS CAPLET PO SCH (08:25)
[2020-07-26] MEDS: PRIMIDONE 50 MG TABLET PO SCH (08:26)
[2020-07-26] MEDS: TAMOXIFEN 10 MG TABLET PO SCH (08:26)
[2020-07-26] MEDS: FUROSEMIDE 20 MG TABLET PO SCH (08:26)
[2020-07-26] MEDS: PHENYTOIN ER 100 MG CAPSULE PO SCH ×2 (08:26→21:58)
[2020-07-26] MEDS: BENZONATATE 100 MG CAPSULE PO SCH ×3 (08:27→21:59)
[2020-07-26] MEDS: MELOXICAM 7.5 MG TABLET PO SCH (08:27)
[2020-07-26] MEDS: ZINC SULFATE 220 MG CAPSULE PO SCH (08:27)
[2020-07-26] MEDS: GABAPENTIN 300 MG CAPSULE PO SCH ×2 (08:27→21:59)
[2020-07-26] MEDS: hydrOXYzine HCL 25 MG TABLET PO SCH (08:27)
[2020-07-26] MEDS: LEVOFLOXACIN 750 MG TABLET PO SCH (08:27)
[2020-07-26] MEDS: FERROUS SULFATE 325 MG TABLET PO SCH (08:27)
[2020-07-26] MEDS: MENTHOL/ZINC OXIDE OINT 71 GM JAR TOP SCH ×3 (08:28→21:58)
[2020-07-26] MEDS: ASCORBIC ACID 500 MG TABLET PO SCH (08:28)
[2020-07-26] MEDS: CETIRIZINE 10 MG TABLET PO SCH (08:28)
[2020-07-26] MEDS: DESITIN 4OZ/NYSTATIN 15 GRAM MIXTURE PASTE TOP SCH ×2 (08:28→21:59)
[2020-07-26] MEDS ORDERED: POTASSIUM CHLORIDE 20 MEQ TABLET PO ONE (14:39)
[2020-07-26] MEDS: ACETAMINOPHEN 325 MG TABLET PO PRN ×2 (16:07→21:59)
[2020-07-26] MEDS: PIPERACILLIN/TAZOBACTAM 3,375 MG in SODIUM CHLORIDE 0.9% 100 ML IV SCH ×2 (16:08→22:35)
[2020-07-26] MEDS: ONDANSETRON 4 MG/2 ML VIAL IV PRN (16:08)
[2020-07-26] MEDS: REMDESIVIR 100 MG in SODIUM CHLORIDE 0.9% 230 ML IV SCH (16:09)
[2020-07-26] MEDS: MELATONIN 3 MG TABLET PO SCH (21:58)
[2020-07-26] MEDS: ESCITALOPRAM 10 MG TABLET PO SCH (21:58)
[2020-07-26] MEDS: DONEPEZIL 10 MG TABLET PO SCH (21:58)
[2020-07-26] MEDS: NEOMYCIN/POLYMYXIN/BACITRACIN OINT 0.9 GM PACK TOP SCH (21:58)
[2020-07-26] MEDS: OLANZapine 5 MG TABLET PO SCH (21:59)
[2020-07-26] MEDS: MIRTAZAPINE 30 MG TABLET PO SCH (21:59)
[2020-07-27] MEDS: ALBUTEROL INHALER 18 GM INH SCH ×4 (00:59→18:27)
[2020-07-27] MEDS: PIPERACILLIN/TAZOBACTAM 3,375 MG in SODIUM CHLORIDE 0.9% 100 ML IV SCH ×2 (06:08→18:26)
[2020-07-27] MEDS: LEVOTHYROXINE 75 MCG TABLET PO SCH (06:30)
[2020-07-27] MEDS: DEXAMETHASONE 4 MG/1 ML VIAL IV SCH (08:33)
[2020-07-27] MEDS: POTASSIUM CHLORIDE 20 MEQ/15 ML UDCUP PO SCH (08:33)
[2020-07-27] MEDS: hydrOXYzine HCL 25 MG TABLET PO SCH (08:34)
[2020-07-27] MEDS: PRIMIDONE 50 MG TABLET PO SCH (08:34)
[2020-07-27] MEDS: GABAPENTIN 300 MG CAPSULE PO SCH ×2 (08:34→20:49)
[2020-07-27] MEDS: MELOXICAM 7.5 MG TABLET PO SCH (08:34)
[2020-07-27] MEDS: ASCORBIC ACID 500 MG TABLET PO SCH (08:34)
[2020-07-27] MEDS: LACTOBACILLUS ACIDOPHILUS/BULGARICUS CAPLET PO SCH (08:34)
[2020-07-27] MEDS: BENZONATATE 100 MG CAPSULE PO SCH ×3 (08:35→20:50)
[2020-07-27] MEDS: TAMOXIFEN 10 MG TABLET PO SCH (08:35)
[2020-07-27] MEDS: FERROUS SULFATE 325 MG TABLET PO SCH (08:36)
[2020-07-27] MEDS: ZINC SULFATE 220 MG CAPSULE PO SCH (08:36)
[2020-07-27] MEDS: CETIRIZINE 10 MG TABLET PO SCH (08:36)
[2020-07-27] MEDS: MENTHOL/ZINC OXIDE OINT 71 GM JAR TOP SCH ×3 (08:43→20:49)
[2020-07-27] MEDS: DESITIN 4OZ/NYSTATIN 15 GRAM MIXTURE PASTE TOP SCH ×2 (08:44→20:50)
[2020-07-27] MEDS ORDERED: CHOLECALCIFEROL 5,000 UNIT TABLET PO SCH (09:00)
[2020-07-27] MEDS: ENOXAPARIN 40 MG/0.4 ML SYRINGE SUBCUT SCH ×2 (09:00→20:49)
[2020-07-27] MEDS ORDERED: POTASSIUM CHLORIDE 20 MEQ TABLET PO ONE (10:49)
[2020-07-27] MEDS: PHENYTOIN ER 100 MG CAPSULE PO SCH ×2 (11:29→20:49)
[2020-07-27] MEDS ORDERED: FUROSEMIDE 40 MG/4 ML VIAL IV ONE (15:02)
[2020-07-27] MEDS: REMDESIVIR 100 MG in SODIUM CHLORIDE 0.9% 230 ML IV SCH (16:25)
[2020-07-27] MEDS: ACETAMINOPHEN 325 MG TABLET PO PRN ×2 (16:25→20:50)
[2020-07-27] MEDS: ESCITALOPRAM 10 MG TABLET PO SCH (20:49)
[2020-07-27] MEDS: DONEPEZIL 10 MG TABLET PO SCH (20:49)
[2020-07-27] MEDS: NEOMYCIN/POLYMYXIN/BACITRACIN OINT 0.9 GM PACK TOP SCH (20:49)
[2020-07-27] MEDS: MELATONIN 3 MG TABLET PO SCH (20:49)
[2020-07-27] MEDS: OLANZapine 5 MG TABLET PO SCH (20:50)
[2020-07-27] MEDS: MIRTAZAPINE 30 MG TABLET PO SCH (20:50)
[2020-07-28] MEDS: PIPERACILLIN/TAZOBACTAM 3,375 MG in SODIUM CHLORIDE 0.9% 100 ML IV SCH ×2 (00:06→08:02)
[2020-07-28] MEDS: ALBUTEROL INHALER 18 GM INH SCH ×3 (00:06→13:46)
[2020-07-28 05:07] LABS: Basophils % 0.2 % (0.0-0.8); Eosinophils # 0.1 10*3/uL (0.0-0.87); Hematocrit 26.3 VOL% (35.7-47.0); Hemoglobin 7.7 GM/DL (12.0-16.0); Immature Granulocytes % 0.7 %; Immature Granulocytes Absolute 0.03 #; Lymphocytes # 1.4 10*3/uL (1.4-4.0); Lymphocytes % 34.4 % (21.3-54.2); Mean Corpuscular HGB Conc 29.3 GM/DL (32-36); Mean Corpuscular Volume 86.2 FL (87-102); Mean Platelet Volume 9.6 FL (9.6-12.0); Neutrophils % 52.7 % (38.7-73.9); Platelet Count 247 T/CUMM (130-400); Red Blood Count 3.05 MC/CUMM (3.8-5.5); Red Cell Distribution Width 21.2 % (9.3-17.3)
[2020-07-28 05:24] LABS: Hypochromasia 1+
[2020-07-28 05:25] LABS: Anisocytosis 1+; Microcytosis 1+; Ovalocytes Slight; Platelet Estimate Normal
[2020-07-28 05:33] LABS: Calcium 7.9 MG/DL (8.5-10.1); Osmolality,Calculated 277.3 MOS/KG (273-304)
[2020-07-28] MEDS: LEVOTHYROXINE 75 MCG TABLET PO SCH (06:19)
[2020-07-28] MEDS: POTASSIUM CHLORIDE 20 MEQ/15 ML UDCUP PO SCH (08:00)
[2020-07-28] MEDS: DEXAMETHASONE 4 MG/1 ML VIAL IV SCH (08:01)
[2020-07-28] MEDS: ENOXAPARIN 40 MG/0.4 ML SYRINGE SUBCUT SCH (08:02)
[2020-07-28] MEDS: CETIRIZINE 10 MG TABLET PO SCH (08:05)
[2020-07-28] MEDS: MELOXICAM 7.5 MG TABLET PO SCH (08:05)
[2020-07-28] MEDS: PHENYTOIN ER 100 MG CAPSULE PO SCH (08:05)
[2020-07-28] MEDS: BENZONATATE 100 MG CAPSULE PO SCH ×2 (08:05→14:34)
[2020-07-28] MEDS: PRIMIDONE 50 MG TABLET PO SCH (08:05)
[2020-07-28] MEDS: ZINC SULFATE 220 MG CAPSULE PO SCH (08:06)
[2020-07-28] MEDS: ASCORBIC ACID 500 MG TABLET PO SCH (08:06)
[2020-07-28] MEDS: hydrOXYzine HCL 25 MG TABLET PO SCH (08:06)
[2020-07-28] MEDS: FERROUS SULFATE 325 MG TABLET PO SCH (08:07)
[2020-07-28] MEDS: TAMOXIFEN 10 MG TABLET PO SCH (08:07)
[2020-07-28] MEDS: GABAPENTIN 300 MG CAPSULE PO SCH (08:07)
[2020-07-28] MEDS: LACTOBACILLUS ACIDOPHILUS/BULGARICUS CAPLET PO SCH (08:07)
[2020-07-28] MEDS: MENTHOL/ZINC OXIDE OINT 71 GM JAR TOP SCH ×2 (08:08→14:43)
[2020-07-28] MEDS: DESITIN 4OZ/NYSTATIN 15 GRAM MIXTURE PASTE TOP SCH (08:08)
[2020-07-28] MEDS ORDERED: SODIUM CHLORIDE 0.9% 1,000 ML IV PRN (10:55)
[2020-07-28 14:46] VITALS: BP 117/62
[2020-07-28 15:33] LABS: Hematocrit 31.3 VOL% (35.7-47.0); Hemoglobin 9.7 GM/DL (12.0-16.0)
[2020-07-28] MEDS ORDERED: CALCIUM (CARBONATE)/VITAMIN D 600 MG-400 UNIT TABLET PO SCH (21:00)
== END 2020-07-28 16:07 | DRG 177 ==
LOC: EDUNIT# → EDBD → N.ED 11:08 → SUATTDRO 15:58 → N.EDINP 15:58 → N.2E 18:01
PROVIDERS: ADMIT Internal Medicine Geriatric Medicine; ATTEND Internal Medicine